=== PATIENT | female | born 1970 | race African-American/Black ===

== ENCOUNTER 2017-03-09 19:30 | Emergency (ER) | payer OTHER ==
[2017-03-09 19:37] VITALS: BP 139/72; PULSE 77; TEMP 98.3; BMI 23.6
[2017-03-09] MEDS ORDERED: CEPHALEXIN MONOHYDRATE 500 MG CAPSULE (UD) PO ONE (21:01)
[2017-03-09] MEDS ORDERED: BACITRACIN 15 GM TUBE TOPICAL OINTMENT TP ONE (21:01)
[2017-03-09] MEDS ORDERED: CEPHALEXIN MONOHYDRATE 250 MG CAPSULE (FP) ONE (21:02)
[2017-03-09] MEDS ORDERED: BACITRACIN 0.9 GM PACKET ONE (21:03)
--- NOTE | 2017-03-09 21:10 | PDOC ---
History of Present Illness - General Chief Complaint: Injury Stated Complaint: LACERATION Time Seen by Provider: 03/09/17 20:54 History Source: Patient Exam Limitations: No Limitations - History of Present Illness Initial Comments: 03/09/17 21:05 46yo Female patient with no significant past medical history presents to ED c/o right hand injury. Patient states while throwing out some cardboard, he children accidentally threw a knife in the garbage and as she attempted to compress the garbage, she injured her hand (palm aspect). Patient reports tetanus UTD 2014. She denies any other complaints at this time. Timing/Duration: reports: just prior to arrival Severity: No: mild, moderate, severe Location: reports: extremities (right hand). denies: none, face, feet, genitalia, generalized, hands, other, scalp, torso Respiratory Risk Factors: denies: no cause identified, exposure to illness, exposure to allergen, foods, insect bite, insect sting, medications, pollen, soaps, other Modifying Factors: worse with: antihistamine, calamine lotion, prednisone, scratching, topical steriods, other Associated Symptoms: denies: denies symptoms, blisters, change in skin texture, edema, fever, flushing, headache, hives, jaundice, malaise, nasal congestion, numbness, pallor, paresthesia, petechiae, rash, sore throat, swelling/mass/lumps , tingling, other Past History - Travel Traveled outside of the country in the last 30 days: No Close contact w/someone who was outside of country & ill: No - Past Medical History Allergies/Adverse Reactions: Allergies Allergy/AdvReac Type Severity Reaction Status Date / Time No Known Allergies Allergy Verified 03/09/17 20:46 Home Medications: Ambulatory Orders Cephalexin Monohydrate [Keflex -] 500 mg PO BID #10 capsule 03/09/17 - Suicide/Smoking/Psychosocial Hx Smoking History: Never smoked Have you smoked in the past 12 months: No Information on smoking cessation initiated: No Hx Alcohol Use: No Drug/Substance Use Hx: No Substance Use Type: None Review of Systems - Review of Systems Able to Perform ROS?: Yes Is the patient limited Divehi proficient: No Musculoskeletal: Yes: Other (Right hand injury) Integumentary: Yes: Other (Puncture wound) All Other Systems: Reviewed and Negative *Physical Exam - Vital Signs Last Vital Signs Temp Pulse Resp BP Pulse Ox 98.3 F 77 16 139/72 98 03/09/17 19:32 03/09/17 19:32 03/09/17 19:32 03/09/17 19:32 03/09/17 19:32 - Physical Exam General Appearance: Yes: Nourished, Appropriately Dressed. No: Apparent Distress, Mild Distress, Moderate Distress, Severe Distress Respiratory/Chest: positive: Lungs Clear, Normal Breath Sounds. negative: Chest Tender, Respiratory Distress, Accessory Muscle Use, Labored Respiration, Rapid RR, Decreased Breath Sounds, Paradoxal Breathing, Crackles, Rales, Rhonchi , Stridor, Wheezing Cardiovascular: positive: Regular Rhythm, Regular Rate. negative: Tachycardia Musculoskeletal: positive: Normal Inspection. negative: CVA Tenderness, Decreased Range of Motion, Vertebral Tenderness Extremity: positive: Normal Capillary Refill, Normal Inspection, Normal Range of Motion. negative: Pedal Edema, Swelling, Calf Tenderness, Erythema, Inflammation Integumentary: positive: Normal Color, Dry, Warm, Other (Small Puncture wound noted to right palm. No bleeding. Mild tissue swelling with tenderness noted on examination. FROM intact. Sensation intact. Pulses 2+ bounding.) Neurologic: positive: ob/gyn doctor II-XII NML intact, Fully Oriented, Alert, Normal Mood/ Affect, Normal Response, Motor Strength 5/5 *DC/Admit/Observation/Transfer Diagnosis at time of Disposition: Puncture wound Hand injury Qualifiers: Encounter type: initial encounter Laterality: right Qualified Code(s): S69.91XA - Unspecified injury of right wrist, hand and finger(s), initial encounter; S69.91XA - Unspecified injury of right wrist, hand and finger(s), initial encounter - Discharge Dispostion Disposition: HOME Condition at time of disposition: Stable Admit: No - Prescriptions Prescriptions: Cephalexin Monohydrate [Keflex -] 500 mg PO BID #10 capsule - Referrals Referrals: STAFF,NOT ON [Primary Care Provider] - Benjamín Byrd MD [Staff Physician] - - Patient Instructions Printed Discharge Instructions: DI for Puncture Wound Additional Instructions: Follow up with Dr. Byrd (Orthopedist) regarding hand injury in one week if you experience increasing pain, numbness, decreased range of motion or any other concerns. If your symptoms worsen return for further evaluation. Apply bacitracin daily and as needed. Print Language: ARABIC - Post Discharge Activity Forms/Work/School Notes: Back to Work
== END 2017-03-09 21:20 | disposition home or self-care (01) ==
LOC: JER 19:30 → JERFT 19:30 → JER 21:20
DX: S61.431A Puncture wound without foreign body of right hand, initial encounter (principal); W26.0XXA Contact with knife, initial encounter; Y93.E9 Activity, other interior property and clothing maintenance; Y92.038 Other place in apartment as the place of occurrence of the external cause; Y99.8 Other external cause status
CPT/HCPCS: 99282-25

== ENCOUNTER 2019-02-21 15:11 | Emergency (ER) | payer OTHER ==
[2019-02-21 15:17] VITALS: BP 118/71; PULSE 82; TEMP 98.9; BMI 23.6
--- NOTE | 2019-02-21 15:21 | PDOC ---
History of Present Illness <Elizabeth Beckman - Last Filed: 02/21/19 15:20> - General History Source: Patient Exam Limitations: Clinical Condition - History of Present Illness Occurred: reports: just prior to arrival <Jeremy Emanuel - Last Filed: 02/21/19 15:46> - General Chief Complaint: Injury Stated Complaint: LACERATION ON THE LT HAND Time Seen by Provider: 02/21/19 15:20 Past History - Past Medical History COPD: No - Psycho Social/Smoking Cessation Hx Smoking History: Never smoked Have you smoked in the past 12 months: No Hx Alcohol Use: No Drug/Substance Use Hx: No Substance Use Type: None <Jemima Beckmanan - Last Filed: 02/21/19 15:20> <Jeremy Emanuel - Last Filed: 02/21/19 15:46> - Past Medical History Allergies/Adverse Reactions: Allergies Allergy/AdvReac Type Severity Reaction Status Date / Time No Known Allergies Allergy Verified 02/21/19 15:17 Home Medications: Ambulatory Orders NK [No Known Home Medication] 02/21/19 Review of Systems - Review of Systems Able to Perform ROS?: Yes Is the patient limited Japanese proficient: No Constitutional: No: Malaise, Weakness HEENTM: No: Symptoms Reported Respiratory: No: Symptoms reported Cardiac (ROS): No: Symptoms Reported ABD/GI: No: Symptoms Reported <Jeremy Emanuel - Last Filed: 02/21/19 15:46> *Physical Exam - Vital Signs Last Vital Signs Temp Pulse Resp BP Pulse Ox 98.9 F 82 18 118/71 97 02/21/19 15:14 02/21/19 15:14 02/21/19 15:14 02/21/19 15:14 02/21/19 15:14 <Jemima Beckmanan - Last Filed: 02/21/19 15:20> - Vital Signs Last Vital Signs Temp Pulse Resp BP Pulse Ox 98.9 F 82 18 118/71 97 02/21/19 15:14 02/21/19 15:14 02/21/19 15:14 02/21/19 15:14 02/21/19 15:14 <Jeremy Emanuel Familia - Last Filed: 02/21/19 15:46>
[2019-02-21] MEDS ORDERED: DIPHTH,PERTUSS(ACELL),TET 0.5 ML DISP.SYRIN IM ONE ×2 (15:51→15:55)
--- NOTE | 2019-02-21 15:51 | PDOC ---
History of Present Illness - General Chief Complaint: Injury Stated Complaint: LACERATION ON THE LT HAND Time Seen by Provider: 02/21/19 15:20 History Source: Patient Exam Limitations: Clinical Condition - History of Present Illness Initial Comments: 02/21/19 16:11 Patient with no significant past medical history presented with laceration to radial aspect of left hand proximal to left thumb status post peeling a pumpkin accidentally cutting her left hand. Patient does not recall last tetanus vaccine. Denies numbness or tingling sensation. Denies restricted finger movement. Occurred: reports: just prior to arrival Past History - Past Medical History Allergies/Adverse Reactions: Allergies Allergy/AdvReac Type Severity Reaction Status Date / Time No Known Allergies Allergy Verified 02/21/19 15:17 Home Medications: Ambulatory Orders Ibuprofen 800 mg PO Q8H PRN #20 tablet 02/21/19 Sulfamethoxazole/Trimethoprim [Bactrim Ds -] 1 tab PO BID #14 tablet 02/21/19 COPD: No - Psycho Social/Smoking Cessation Hx Smoking History: Never smoked Have you smoked in the past 12 months: No Hx Alcohol Use: No Drug/Substance Use Hx: No Substance Use Type: None Review of Systems - Review of Systems Able to Perform ROS?: Yes Is the patient limited Uzbek proficient: No Constitutional: No: Malaise, Weakness HEENTM: No: Symptoms Reported Respiratory: No: Symptoms reported Cardiac (ROS): No: Symptoms Reported ABD/GI: No: Symptoms Reported Musculoskeletal: Yes: Symptoms Reported, See HPI, Muscle Pain (left thumb) Integumentary: Yes: Symptoms Reported, See HPI, Other (laceration to left hand) Neurological: No: Numbness, Paresthesia, Tingling All Other Systems: Reviewed and Negative *Physical Exam - Vital Signs Last Vital Signs Temp Pulse Resp BP Pulse Ox 98.9 F 82 18 118/71 97 02/21/19 15:14 02/21/19 15:14 02/21/19 15:14 02/21/19 15:14 02/21/19 15:14 - Physical Exam Comments: 02/21/19 15:48 GENERAL: Well developed, well nourished. Awake and alert in mild acute distress. PULMONARY: No evidence of respiratory distress. MUSCULOSKELETAL : mild tenderness over radial aspect of left wrist over the proximal aspect of left thumb with minimal bleeding. No bony deformities. Full range of motion of left thumb. 5 out of 5 muscle strength left thumb SKIN: Warm and dry. Normal capillary refill. 3 cm linear laceration to medial aspect of right thumb over proximal phalange with minimal bleeding NEUROLOGICAL: Alert, awake, appropriate. No motor deficits in the lower extremities. Gait is normal without ataxia. PSYCHIATRIC: Cooperative. Good eye contact. Appropriate mood and affect. General Appearance: Yes: Nourished, Appropriately Dressed. No: Apparent Distress Procedures - Laceration/Wound Repair Left Anterior Lateral Volar Hand 1st digit Wound Length: 2.6 to 5.0 cm (3cm) Wound Explored: clean, no foreign body present Wound's Depth, Shape: superficial, linear Irrigated w/ Saline: Yes Betadine Prep: Yes Anesthesia: 1% Lidocaine Amount of Anesthetic (ccs): 2 Wound Repaired With: Sutures Suture Size/Type: 4:0, nylon Number of Sutures: 4 Layer Closure: No Sterile Dressing Applied: Yes Splint Applied: No Sling Applied: No Progress: 02/21/19 16:15 3 cm superficial linear laceration to radial aspect of proximal aspect of left thumb over thenar muscle of left thumb. wound cleaned with Betadine and infiltrated with 2 cc 1% lidocaine. Wound closed with 4 interrupted 4"O nylon sutures. Patient tolerated procedure well. Bacitracin applied to wound and wound covered with adhesive bandage. Tetanus vaccine given by nurse Medical Decision Making - Medical Decision Making 02/21/19 16:12 Patient with no significant past medical history presented with laceration to radial aspect of left hand proximal to left thumb status post peeling a pumpkin accidentally cutting her left hand. Patient does not recall last tetanus vaccine. Denies numbness or tingling sensation. Denies restricted finger movement. Exam significant for 3 cm linear laceration over radial aspect of thenar muscle of left thumb with minimal bleeding. Few range of motion of left thumb. 5 out of 5 muscle strength left thumb. Wound cleaned with Betadine and infiltrated with 2 cc 1% lidocaine. Wound closed with 4 interrupted 4 nylon sutures. Patient tolerated procedure well. Bacitracin applied to wound and wound covered with adhesive bandage. Tetanus vaccine given by nurse. Patient stable for discharge on Bactrim antibiotics for infection prophylaxis with advised to do cold compress today and switch to warm compresses tomorrow as needed for pain and swelling. Patient advised to apply bacitracin twice a day to wound. Patient stable for discharge to follow- up in 1 week for suture removal Discharge - Discharge Information Problems reviewed: Yes Clinical Impression/Diagnosis: Puncture wound Laceration of left hand Qualifiers: Encounter type: initial encounter Foreign body presence: without foreign body Qualified Code(s): S61.412A - Laceration without foreign body of left hand, initial encounter Disposition: HOME - Admission No - Additional Discharge Information Prescriptions: Ibuprofen 800 mg PO Q8H PRN #20 tablet PRN Reason: pain Sulfamethoxazole/Trimethoprim [Bactrim Ds -] 1 tab PO BID #14 tablet - Follow up/Referral - Patient Discharge Instructions Patient Printed Discharge Instructions: DI for Laceration Repair -- Simple Additional Instructions: Keep wound clean and dry for the next 24 hours. Apply bacitracin to wound twice a day. Take prescribed medication as prescribed. Follow-up in 1 week for suture removal. No heavy lifting for the next 2 to 3 days. - Post Discharge Activity Work/Back to School Note: Back to Work
[2019-02-21] MEDS ORDERED: IBUPROFEN 400 MG TABLET (FP) PO ONE ×2 (16:07→16:24)
== END 2019-02-21 16:30 | disposition home or self-care (01) ==
LOC: JERFT 15:11
PROC: 3E0234Z Introduction of Serum, Toxoid and Vaccine into Muscle, Percutaneous Approach (ICD-10-PCS; principal; 2019-02-21)
PROC: 0HQGXZZ Repair Left Hand Skin, External Approach (ICD-10-PCS; 2019-02-21)
DX: S61.412A Laceration without foreign body of left hand, initial encounter (principal); W26.0XXA Contact with knife, initial encounter; Y93.89 Activity, other specified; Y92.038 Other place in apartment as the place of occurrence of the external cause; Y99.8 Other external cause status
CPT/HCPCS: 12002-25; 90471; 90715; 99281-25

== ENCOUNTER 2019-02-28 07:53 | Emergency (ER) | payer OTHER ==
[2019-02-28 08:10] VITALS: BP 111/66; PULSE 73; TEMP 98.1; BMI 23.6
--- NOTE | 2019-02-28 08:57 | PDOC ---
History of Present Illness - General Chief Complaint: Suture/Staple Removal(Here) Stated Complaint: STITCH REMOVAL Time Seen by Provider: 02/28/19 08:18 Past History - Past Medical History Allergies/Adverse Reactions: Allergies Allergy/AdvReac Type Severity Reaction Status Date / Time amoxicillin Allergy Verified 02/28/19 08:09 Home Medications: Ambulatory Orders Ibuprofen 800 mg PO Q8H PRN #20 tablet 02/21/19 Sulfamethoxazole/Trimethoprim [Bactrim Ds -] 1 tab PO BID #14 tablet 02/21/19 COPD: No - Psycho Social/Smoking Cessation Hx Smoking History: Never smoked Have you smoked in the past 12 months: No Hx Alcohol Use: No Drug/Substance Use Hx: No Substance Use Type: None *Physical Exam - Vital Signs Last Vital Signs Temp Pulse Resp BP Pulse Ox 98.1 F 73 18 111/66 99 02/28/19 08:07 02/28/19 08:07 02/28/19 08:07 02/28/19 08:07 02/28/19 08:07 Discharge - Follow up/Referral Referrals: ON STAFF,NOT [Primary Care Provider] - - Patient Discharge Instructions - Post Discharge Activity
--- NOTE | 2019-02-28 09:06 | PDOC ---
Suture Removal/Wound Check HPI - History of Present Illness Chief Complaint: Suture/Staple Removal(Here) Stated Complaint: STITCH REMOVAL Time Seen by Provider: 02/28/19 08:18 History Source: Yes: Patient Treated at: [facility] Date of Last ED visit: 02/21/19 - Previous ED Treatment Type of procedure performed on last visit: Yes: Laceration Repair Tetanus Immunization: Yes: Up to Date Past History - Past Medical History Allergies/Adverse Reactions: Allergies Allergy/AdvReac Type Severity Reaction Status Date / Time amoxicillin Allergy Verified 02/28/19 08:09 Home Medications: Ambulatory Orders Ibuprofen 800 mg PO Q8H PRN #20 tablet 02/21/19 Sulfamethoxazole/Trimethoprim [Bactrim Ds -] 1 tab PO BID #14 tablet 02/21/19 COPD: No - Psycho Social/Smoking Cessation Hx Smoking History: Never smoked Have you smoked in the past 12 months: No Hx Alcohol Use: No Drug/Substance Use Hx: No Substance Use Type: None *Review of Systems - Review of Systems Constitutional: No: Fever *Physical Exam - Vital Signs Last Vital Signs Temp Pulse Resp BP Pulse Ox 98.1 F 73 18 111/66 99 02/28/19 08:07 02/28/19 08:07 02/28/19 08:07 02/28/19 08:07 02/28/19 08:07 - Physical Exam General Appearance: Yes: Appropriately Dressed. No: Apparent Distress HEENT: positive: Normal Voice Neck: positive: Supple Respiratory/Chest: negative: Respiratory Distress Integumentary: positive: Dry, Warm, Other (well nuha wound to thenar eminence of L hand w/ sutures in place) Neurologic: positive: Fully Oriented, Alert, Normal Mood/Affect Medical Decision Making - Medical Decision Making 02/28/19 09:07 48 yo F, no sig pmhx, here for suture removal to L hand. Patient s/p suture repair 8 days ago. No complaints today See exam Suture removal No e/o infxn 4 sutures removed Steri-strip placed for gap in wound Dc to return as needed Discharge - Discharge Information Problems reviewed: Yes Clinical Impression/Diagnosis: Visit for suture removal Condition: Good Disposition: HOME - Follow up/Referral Referrals: ON STAFF,NOT [Primary Care Provider] - - Patient Discharge Instructions Patient Printed Discharge Instructions: DI for Suture Removal Additional Instructions: WHAT YOU NEED TO KNOW: Steristrips are sterile pieces of medical tape used to close wounds and help the edges grow back together. Steristrips keep the wound clean and protected while it heals. Steri strips adhesive will peel off on their own, usually by 5 to 10 days Patients may shower while the adhesive is on the skin but should not soak or scrub the area for 7 to 10 days. Wet skin should be gently patted dry. No follow-up visit is required unless there are signs of infection or non- healing. - Post Discharge Activity
== END 2019-02-28 09:05 | disposition home or self-care (01) ==
LOC: JERFT 07:53
DX: Z48.817 Encounter for surgical aftercare following surgery on the skin and subcutaneous tissue (principal); Z48.02 Encounter for removal of sutures; Z88.0 Allergy status to penicillin
CPT/HCPCS: 99281-25